=== PATIENT | female | born 1965 | race Caucasian/White ===

== ENCOUNTER 2017-10-30 17:11 | Inpatient (IN) | payer OTHER ==
[~2017-10-30] VITALS: Ht 162.6 cm; Wt 59.9 kg
[~2017-10-30 17:11] MED LIST: AMBIEN 5 MG TABL5 M1 PO; BRIO; CLONAZEPAM 0.50.5 M1 PO; CYCLOBENZAPRINE5 MG PO; FLONASE 0.05%50 MCG NASAL; GLIPIZIDE 10 MG10 MG PO; GRALISE300 MG PO; LEXAPRO 10 MG T10 M1 PO; LIDOCAINE VISC100 ML PO; PERCOCET PO; POTASSIUM20 PO; SIMVASTATIN40 MG PO; SYNTHROID75 MCG PO
[2017-10-30 17:27] VITALS: BP 130/76
[2017-10-30 17:33] LABS: URINE BILIRUBIN NEGATIVE (Negative); URINE BLOOD NEGATIVE (Negative); URINE CLARITY CLEAR; URINE COLOR YELLOW; URINE GLUCOSE-RANDOM NEGATIVE (Negative); URINE KETONES TRACE (Negative); URINE LEUKOCYTES-REFLEX TRACE (Negative); URINE NITRITE-REFLEX NEGATIVE (Negative); URINE PROTEIN NEGATIVE (Negative)
[2017-10-30 17:41] LABS: HYALINE CASTS 0-3 Few /LPF (None Seen); SQUAMOUS 0-3 Few /LPF (0-3)
[2017-10-30 17:42] LABS: CRYSTALS None Seen /LPF (None Seen); MUCUS None Seen strn/LPF (None Seen); URINE WBC-REFLEX 0-5 Rare /HPF (0-5)
[2017-10-30 17:43] LABS: BACTERIA-REFLEX 1-9 Few /HPF (None Seen); URINE RBC 0-2 Rare /HPF (0-2)
[2017-10-30] MEDS ORDERED: ZOVIRAX400 MG PO (17:43)
[2017-10-30] MEDS ORDERED: VENTOLIN HFA 1818 GM INH (17:43)
[2017-10-30] MEDS ORDERED: ATENOLOL 50MG T50 M1 PO (17:44)
[2017-10-30] MEDS ORDERED: BREO ELLIPTA 21 EACH INH (17:44)
[2017-10-30] MEDS ORDERED: CELEBREX 200 M200 M1 PO (17:44)
[2017-10-30 17:45] LABS: HEMATOCRIT 32.5 % (37.0-47.0); HEMOGLOBIN 10.7 gm/dL (12.0-15.0); MCH 29.7 pg (26.0-34.0); MPV 8.6 fl. (7.2-11.1); NUCLEATED RBCS 0 /100WBC; PLATELET COUNT* 125 thou/uL (150-400); RBC 3.61 mil/uL (4.20-5.00); RDW-CV 15.1 % (10.5-14.5); WBC 9.7 thou/uL (4.0-11.0)
[2017-10-30] MEDS ORDERED: PERIDEX15 ML MUCOUS MEM (17:45)
[2017-10-30] MEDS ORDERED: VOLTAREN GEL 1100 G2 TOP (17:47)
[2017-10-30] MEDS ORDERED: B-12 DOTS500 MCG PO (17:47)
[2017-10-30] MEDS ORDERED: LOMOTIL TABLET1 EACH PO (17:47)
[2017-10-30] MEDS ORDERED: AROMASIN25 MG PO (17:48)
[2017-10-30] MEDS ORDERED: AFINITOR10 MG PO (17:48)
[2017-10-30] MEDS ORDERED: MAGOX 400400 MG PO (17:49)
[2017-10-30] MEDS ORDERED: IPRATROPIU0.2 MG/1 M INH (17:49)
[2017-10-30] MEDS ORDERED: ZOFRAN8 MG PO (17:50)
[2017-10-30] MEDS ORDERED: PYRIDOXINE HCL100 MG PO (17:51)
[2017-10-30] MEDS ORDERED: PRAVACHOL40 MG PO (17:51)
[2017-10-30 17:52] LABS: INR 1.2; PROTIME 11.8 Seconds (9.20-11.50)
[2017-10-30 17:54] LABS: ANION GAP 8 mmol/L (7-16); BUN 22 mg/dL (7-18); CALCIUM 8.4 mg/dL (8.5-10.1); CHLORIDE 108 mmol/L (98-107); CO2 25 mmol/L (21-32); CREATININE 0.9 mg/dL (0.6-1.3); GLUCOSE 87 mg/dL (70-99); POTASSIUM 4.3 mmol/L (3.5-5.1); SODIUM 141 mmol/L (136-145)
[2017-10-30 18:09] LABS: ALBUMIN 2.3 g/dL (3.4-5.0); ALKALINE PHOSPHATASE 356 U/L (46-116); LIPASE 269 U/L (73-393); NT-PRO BRAIN NAT PEPTIDE 329 pg/mL (<300); SGOT 221 U/L (15-37); SGPT 103 U/L (30-65); TOTAL BILIRUBIN 0.9 mg/dL (<0.1-1.0); TOTAL PROTEIN 6.1 g/dL (6.4-8.2); TROPONIN-I LEVEL <0.06 ng/mL (<0.06)
[2017-10-30 18:16] LABS: ABSOLUTE EOSINOPHILS 0.1 thou/uL (0.0-0.7); ABSOLUTE LYMPHOCYTES 2.4 thou/uL (0.8-5.3); ABSOLUTE MONOCYTES 1.3 thou/uL (0.0-1.2); ABSOLUTE NEUTROPHILS 5.9 thou/uL (1.6-8.1)
[2017-10-30 18:17] LABS: PLATELET ESTIMATE DECREASED
[2017-10-30 20:40] VITALS: BP 118/65
[2017-10-30 20:50] VITALS: BP 116/64
--- NOTE | 2017-10-30 20:50 | NUR ---
ADMITTED TO FLOOR PER CART ACCOMPANIED BY ER STAFF AND WITH BELONGINGS. AMBULATES WITH STEADY GAIT FROM CART TO BED. AOX4, PLEASANT, DENIES NEEDS AT PRESENT. HISTORY OBTAINED AND ASSESSMENT PERFORMED, SEE ADMIT NOTES. R LIMB ALERT, LYMPHEDEMA PRESENT. DOUBLE MASTECTOMY WITH LEFT BREAST RECONSTRUCTION. TELE ON SR RAT 92. LCHEST PAC IVF PLACED ON PUMP FOR INFUSION. DENIES PAIN AT PRESENT. SCDS ON. WAITING ON MEDS TO BE ENTERED BY PHARMACY. TOLERATED REGULAR DIET WITHOUT N/V. CALL LITE IN EASY REACH, IN RECLINGER AT BEDSIDE. WILL CONTINUE TO MONITOR.
[2017-10-31 02:51] VITALS: BP 135/65
[2017-10-31 07:30] VITALS: BP 127/66
--- NOTE | 2017-10-31 07:36 | NUR ---
NEW ADMIT OVERNIGHT. PT STATES SHE HASNT SLEPT VERY WELL. CO CONSTIPATION, UP TO BR WITH SBA AND ABLE TO HAVE SMALL BM BUT NOTHING SIGNIFICANT. COLACE GIVEN. MESSAGE SENT TO THIS MORNING FOR ADDITIONAL MEDS. R LIMB ALERT. [facility] IVF INFUSING PER PUMP,ABX GIVEN ORDERED. LABS DRAWN THIS MORNING. AT BEDSIDE OVERNIGHT.TELE SR, TACHY WITH ACTIVITY. TEMP MAX 98.9 OVERNIGHT. ABLE TO USE CALL LITE AND MAKE NEEDS KNOWN.
--- NOTE | 2017-10-31 10:37 | EKG ---
[place] [address] ELECTROCARDIOGRAM REPORT Name: MEREDITH HAMILTON Fortunato Room: [address] IN [facility]#: [id number] Admission: 10/30/17 Attend Phys: Rachael Garcia MD Discharge: Date of : 61 Report #: [id number] THIS REPORT FOR: //name// [facility] ED Test Date: 2017-10-30 Test Time: 17:38:25 Pat Name: MEREDITH HAMILTON Department: Room: Gender: Honing Machine Operator Production: Corie PARRA : 1965 Requested By: Ezekiel Lambert Order Number: [id number] MD: Marko Valdovinos Measurements Intervals Chandler Rate: 87 P: 44 ID: [id number] QRS: 10 QRSD: 85 T: 40 QT: 352 QTc: 424 Interpretive Statements Sinus rhythm Abnormal R-wave progression, early transition No previous ECG available for comparison Electronically Signed On 10-31-2017 10:37:14 CDT by Marko Valdovinos [email or web address] <ELECTRONICALLY SIGNED> By: Marko Valdovinos MD, [facility] 10/31/17 1037 1738 173 Marko Valdovinos MD, [facility] /EPI
[2017-10-31 11:34] VITALS: BP 114/60
--- NOTE | 2017-10-31 14:24 | NUR ---
SW met with pt dtr as pt was gone from the room for a CT scan. Pt lives at home with family; Slot Tag Inserter discussed with SW that pt was in need of resources for family counseling; SW to meet with pt to provide options. SW to continue to follow to assist with safe dc planning.
[2017-10-31 16:11] VITALS: BP 121/65
[2017-10-31 16:44] LABS: HEMATOCRIT 29.6 % (37.0-47.0); HEMOGLOBIN 9.7 gm/dL (12.0-15.0); MCH 30.1 pg (26.0-34.0); MCHC 32.9 g/dL (28.0-37.0); MCV 91.4 fL (80.0-100.0); MPV 9.4 fl. (7.2-11.1); NUCLEATED RBCS 0 /100WBC; PLATELET COUNT* 110 thou/uL (150-400); RBC 3.24 mil/uL (4.20-5.00); RDW-CV 15.6 % (10.5-14.5)
[2017-10-31 16:53] LABS: CALCIUM 8.2 mg/dL (8.5-10.1); CREATININE 0.9 mg/dL (0.6-1.3); POTASSIUM 4.3 mmol/L (3.5-5.1); TOTAL BILIRUBIN 0.8 mg/dL (<0.1-1.0)
[2017-10-31 17:34] LABS: ABSOLUTE EOSINOPHILS 0.1 thou/uL (0.0-0.7); ABSOLUTE LYMPHOCYTES 1.4 thou/uL (0.8-5.3); ABSOLUTE MONOCYTES 0.6 thou/uL (0.0-1.2); ABSOLUTE NEUTROPHILS 5.9 thou/uL (1.6-8.1); PLATELET ESTIMATE ADEQUATE
--- NOTE | 2017-10-31 17:43 | NUR ---
PT SENT FOR ABD US, CT SINUSES, AND MRI BRAIN TODAY. FAMILY PRESENT AT PT'S BESIDE THIS AFTERNOON. L CHEST PORT IN PLACE WITH NO COMPLICATIONS. PT BEING SEEN BY SURGERY TODAY. TOLERATING REGULAR DIET WELL.
[2017-10-31 20:30] VITALS: BP 145/72
[2017-11-01 04:34] VITALS: BP 130/78
--- NOTE | 2017-11-01 06:14 | NUR ---
PT RECEIVED SUPPOSITORY AT HS AND HAD LARGE BM SHE STATES. RECEIVING SLEEP MED AT HS AND SLEPT WELL OVERNIGHT. TELE SR. UP AD NIRMAL IN ROOM, USING BR TO VOID WITHOUT DIFFICULTY. L PAC IVF INFUSING PER PUMP, ABX GIVEN ORDERED. NPO SINCE MIDNIGHT FOR PIPPIDA SCAN TODAY. ABLE TO USE CALL LITE AND MAKE NEEDS KNOWN.
[2017-11-01 06:59] LABS: ABSOLUTE EOSINOPHILS 0.2 thou/uL (0.0-0.7); ABSOLUTE LYMPHOCYTES 1.1 thou/uL (0.8-5.3); ABSOLUTE MONOCYTES 0.8 thou/uL (0.0-1.2); ABSOLUTE NEUTROPHILS 4.8 thou/uL (1.6-8.1); BASOPHILS 0.6 %; EOSINOPHILS 2.4 %; HEMATOCRIT 27.6 % (37.0-47.0); HEMOGLOBIN 9.2 gm/dL (12.0-15.0); LYMPHOCYTES 15.5 %; MCHC 33.3 g/dL (28.0-37.0); MCV 90.3 fL (80.0-100.0); MONOCYTES 11.6 %; MPV 9.2 fl. (7.2-11.1); NUCLEATED RBCS 0 /100WBC; PLATELET COUNT* 99 thou/uL (150-400); POLYS 69.9 %; RBC 3.05 mil/uL (4.20-5.00); WBC 6.9 thou/uL (4.0-11.0)
[2017-11-01 07:33] LABS: ALBUMIN 1.7 g/dL (3.4-5.0); CREATININE 0.7 mg/dL (0.6-1.3); POTASSIUM 4.7 mmol/L (3.5-5.1); TOTAL BILIRUBIN 0.7 mg/dL (<0.1-1.0); TOTAL PROTEIN 5.2 g/dL (6.4-8.2)
[2017-11-01 07:40] VITALS: BP 144/77
[2017-11-01 08:00] LABS: CALCIUM 7.6 mg/dL (8.5-10.1)
--- NOTE | 2017-11-01 09:56 | NUR ---
SW met with pt and pt in room to provide mental health/family counseling resources/referrals. Pt plans to call to see if one of the options would work well for her and her family. No other needs expressed at this time.
--- NOTE | 2017-11-01 11:55 | CON ---
[address] [address] CONSULTATION Name: MEREDITH HAMILTON Room: [address] IN ..#: [id number] Admission: 10/30/17 Attend Phys: Rachael Garcia MD Discharge: Date of : 61 Report #: [id number] THIS REPORT FOR: //name// CC: Rachael Jimenez DATE OF SERVICE: 10/31/2017 ATTENDING PHYSICIAN: Dr. Hill. REASON FOR EVALUATION: Febrile illness of uncertain etiology. The patient with metastatic breast cancer. She is on chemotherapy, although is not neutropenic. HISTORY OF PRESENT ILLNESS: Chart reviewed, the patient examined. This is a 52-year-old with stage 4 adenocarcinoma of the breast, has hepatic metastases, is on Afinitor at home who over the course of the last 2 weeks has had intermittent fevers, which have been high grade reported as 102.5. Does admit to some sinus drainage including a bloody discharge. She notes she did have nasal surgery back in latter part of 2017, I believe. She denies significant amount of pulmonary-related complaints, she does not have them. She does complain of abdominal pain, but that is new since admission, which she attributes to constipation, which is unusual for her. She is lucid. On initial evaluation, urinalysis was generally unremarkable, lactic acid 1.7. Chest x-ray was unremarkable. CT of the head, visualized portions of the paranasal sinuses and mastoid cells are clear. Blood cultures are sterile thus far. She was empirically started on cefepime. ALLERGIES: SULFA. CURRENT MEDICATIONS: Include exemestane, everolimus, cyanocobalamin, celecoxib, atenolol, citalopram, levothyroxine, cefepime, p.r.n. analgesics and antiemetics. PAST MEDICAL HISTORY: As noted above, history of hypertension, has diabetes mellitus, chronic right upper extremity lymphedema. SOCIAL HISTORY: Nonsmoker, no ethanol. FAMILY HISTORY: Noncontributory. REVIEW OF SYSTEMS: As above. PHYSICAL EXAMINATION: GENERAL: She appears chronically ill, undernourished. She is alert, cooperative, lucid, mild [place] [address] CONSULTATION Name: MEREDITH HAMILTON Room: [address]#: [id number] Admission: 10/30/17 Attend Phys: Rachael Garcia MD Discharge: Date of : 61 Report #: [id number] VITAL SIGNS: Temperature 98.7, pulse 106, respirations 18, blood pressure 127/66. SKIN: Warm, dry. I do not appreciate any rashes. HEENT: Otherwise, unremarkable. NECK: Supple. LUNGS: Generally clear. HEART: Regular. I do not appreciate any murmur. ABDOMEN: Soft, mildly distended. There are no peritoneal signs. GENITOURINARY: Deferred. RECTAL: Deferred. LABORATORY DATA: As described above. Urinalysis, 0-5 white cells. Lactic acid 1.7. Chest x-ray, no acute process. Electrolytes: Sodium 141, potassium 4.3, chloride 108, bicarbonate is 25, anion gap of 8, BUN and creatinine 22 and 0.9, AST of 221, ALT of 103, lipase 269. CBC: White count 9.7, H and H 10.7 and 32.5, platelets of 125. There is borderline monocytosis of 1300. ASSESSMENT: Febrile illness of uncertain etiology. At this point, she is afebrile. We will continue empiric therapy. I am sure she has degree of immunosuppression. I did note the hepatic transaminases were elevated, and the AST was high relative to the ALT. Ultrasound noted that she does have hepatic metastases, exclude occult process. I am going to check CT of the sinuses as well, though the initial CT of the head was otherwise unremarkable. We will see how she does clinically over the course of next 24-48 hours. <ELECTRONICALLY SIGNED> By: Pepe Frost MD 11/01/17 1155 1100 [id number] Frost MD /nt
[2017-11-01 16:09] VITALS: BP 131/75
--- NOTE | 2017-11-01 17:39 | NUR ---
PATIENT IS ALERT AND ORIENTED TODAY. WAS SOME WHAT AGITATED THIS MORNING DUE TO BEING NPO BEFORE PIPIDA SCAN. AFTERWARDS PATIENT ATE AND FELT MUCH BETTER. TOLERATED FOOD WELL. PORT IS WORKING WELL WITH FLUIDS RUNNING. UP AD NIRMAL IN ROOM. CALL LIGHT IS IN REACH, WILL CONTINUE TO MONITOR.
[2017-11-01 23:55] VITALS: BP 114/68
--- NOTE | 2017-11-02 06:33 | NUR ---
PATIENT SLEPT MOST OF THE NIGHT. IV FLUIDS CONTINUE TO INFUSE ORDERED. PATIENT HAD NO COMPLAINTS OF PAIN. PATIENT HAS REMAINED AFEBRILE THIS SHIFT. WILL CONTINUE TO MONITOR.
[2017-11-02 10:00] VITALS: BP 136/75
[2017-11-02 14:56] VITALS: BP 136/75
--- NOTE | 2017-11-02 15:01 | CON ---
[address] [address] CONSULTATION Name: ALEXANDERLGMEREDITH OILVEROS Room: [address] IN .#: [id number] Admission: 10/30/17 Attend Phys: Rachael Garcia MD Discharge: Date of : 61 Report #: [id number] THIS REPORT FOR: //name// CC: Rachael Jimenez DATE OF SERVICE: 10/31/2017 REASON FOR CONSULTATION: Metastatic breast cancer and fever. REQUESTING PHYSICIAN: Dr. Garcia. HISTORY OF PRESENT ILLNESS: The patient is a pleasant 52-year-old woman with stage 4 breast cancer who is currently receiving Afinitor and exemestane. She has been on current regimen since 07/2017. She has been having intermittent fevers up to 102 and intermittent confusion. She had a CT scan of head done, which did not show any BAG LOADER metastatic disease. The patient has been seen in the Emergency Room several times. She is admitted to the hospital now with the same reasons, which she does encounter from confusion. Oncology consult is requested. She is feeling somewhat better. She has complaints of abdominal "bloating" and discomfort. She does not have nausea or vomiting. She does not have headaches. She has complaints of cough. She does not have hemoptysis. PAST MEDICAL HISTORY: Significant for stage 4 breast cancer to the bone and liver. She has a history of hypothyroidism, depression, chronic sinusitis, recurrent upper respiratory infections and peripheral neuropathy. SOCIAL HISTORY: She does not smoke or drink currently and has very supportive family. FAMILY HISTORY: Noncontributory. REVIEW OF SYSTEMS: See above. PHYSICAL EXAMINATION: GENERAL: Reveals chronically ill-appearing woman, somewhat lethargic, but arousable. VITAL SIGNS: Blood pressure 121/65, heart rate is 94, temperature 98.3 and respirations 20. HEENT: Does not reveal thrush. NECK: Supple. HEART: Normal S1 and S2. LUNGS: Clear. ABDOMEN: Soft. Abdomen is distended, somewhat tender right upper quadrant, but no guard[place] [address] CONSULTATION Name: MEREDITH HAMILTON Room: [address] IN [facility]#: [id number] Admission: 10/30/17 Attend Phys: Rachael Garcia MD Discharge: Date of : 61 Report #: [id number] MENTAL STATUS: Lethargic, but arousable and answers questions appropriately. LABORATORY DATA: White count 8.0, hemoglobin 9.7, and platelet count 110. Sodium 141 and potassium 4.3. AST 221, ALT 103 and alkaline phosphatase 350. UA: Trace leukocyte esterase. CT of the head visualized ____. CT of the sinuses shows sphenoid and frontal sinus mucosal thickening. Abdominal ultrasound shows diffuse gallbladder wall thickening. There is no edema. Positive sonographic Davis sign. Indeterminant isoechoic nodules ____ left lobe of the liver. ASSESSMENT AND PLAN: 1. Fever of unclear etiology. Agree with surgical intervention with possible cholecystectomy. Agree with case. 2. Confusion. I plan to order brain MRI. 3. Metastatic breast cancer. Continue exemestane. Hold everolimus for several days until etiology of fever is clear. Thank you very much for allowing me to participate in the care of this patient. <ELECTRONICALLY SIGNED> By: Aurelio Byers MD 11/02/17 1501 [id number] [id number] Byers MD /nt
[2017-11-02 15:33] VITALS: BP 144/78
[2017-11-02] MEDS ORDERED: CEFDINIR300 MG PO (16:35)
[2017-11-02 16:37] VITALS: BP 136/75
[2017-11-02 17:01] VITALS: BP 136/75
--- NOTE | 2017-11-02 17:13 | NUR ---
PATIENT IS ALERT AND ORIENTED VERY PLEASANT. UP AD NIRMAL IN ROOM, VITAL SIGNS STABLE ON ROOM AIR. NO COMPLAINTS OF ANY KIND TODAY. PATIENT IS BEING DISCHARGED TODAY TO HOME. DISCHARGE INSTRUCTIONS AND PRESCRIPTIONS GIVEN TO CONCEPCIÓN. QUESTIONS ANSWERED FOR PATIENT AND . PORT DEACCESSED PER PROTOCOL. LEFT VIA WHEEL CHAIR TO HOME WITH BELONGINGS, LEFT WITH .
[2017-11-02 17:15] VITALS: BP 136/75
[2017-11-02 21:13] LABS: ADENOVIRUS Negative (Negative); INFLUENZA A Negative (Negative); INFLUENZA B Negative (Negative); METAPNEUMOVIRUS Negative (Negative); PARAINFLUENZA 1 Negative (Negative); PARAINFLUENZA 2 Negative (Negative); PARAINFLUENZA 3 Negative (Negative); RHINOVIRUS Negative (Negative); RSV A Negative (Negative); RSV B Negative (Negative)
== END 2017-11-02 17:16 | disposition home or self-care (01) | DRG 444 ==
LOC: M.ERS 17:11 → M.TBA-ER 18:21 → M.3W 18:21
PROVIDERS: Family Medicine; Internal Medicine; Surgery; ADMIT Internal Medicine
DX: K81.0 Acute cholecystitis (principal); E43 Unspecified severe protein-calorie malnutrition; R65.10 Systemic inflammatory response syndrome (SIRS) of non-infectious origin without acute organ dysfunction; I10 Essential (primary) hypertension; E03.9 Hypothyroidism, unspecified; F32.9 Major depressive disorder, single episode, unspecified; K81.1 Chronic cholecystitis; E11.42 Type 2 diabetes mellitus with diabetic polyneuropathy; J45.909 Unspecified asthma, uncomplicated; Z88.8 Allergy status to other drugs, medicaments and biological substances; Z85.3 Personal history of malignant neoplasm of breast; Z90.13 Acquired absence of bilateral breasts and nipples; Z88.2 Allergy status to sulfonamides; Z79.899 Other long term (current) drug therapy; Z68.22 Body mass index [BMI] 22.0-22.9, adult

== ENCOUNTER 2018-07-19 17:29 | Inpatient (IN) | payer OTHER ==
[~2018-07-19] VITALS: Ht 170.2 cm; Wt 60.0 kg
--- NOTE | ~2018-07-19 | CON ---
[address] [address] CONSULTATION Name: MEREDITH HAMILTON Room: [address] IN .R.#: [id number] Admission: 07/19/18 Attend Phys: Deann Ramos Discharge: 07/21/18 Date of : 61 Report #: [id number] THIS REPORT FOR: //name// CC: Lizzy Sullivan DICTATED BY: Jonna Romano [facility] DATE OF SERVICE: 07/20/2018 PRIMARY CARE PHYSICIAN: Lizzy Green NP in [facility]. Please note at the time of this dictation, the patient was seen and physically examined by myself. REASON FOR CONSULTATION: Abdominal pain. No bowel movement for greater than 10 days. HISTORY OF PRESENT ILLNESS: This is a 53-year-old female who is unable to give a history. However, her is at her bedside and able to facilitate this. The patient has a longstanding history of metastatic breast cancer initially diagnosed in 2013 with a reoccurrence in 16 and she has been on chemo since. Her chemo was stopped 2 weeks ago due to low platelets. Prior to that, her states that her bowels have been working fairly well; however, over the last month or two, she has not been having regular bowel movements and it has been 10 days since her last bowel movement at this time. He has also noted that over the course of the past week to 10 days, her mental status has deteriorated and that she acts more confused and does not talk appropriately. They did try a little bit of some stool softeners, saw the PCP and was given a prescription for some medicine to help with her bowels, but he does not recall what that was. He states it just gradually progressively has gotten worse, which prompted him to bring her in. He did mention that a year ago, they were told that she had a spot on her liver but that was gone. Unclear, if she has mets to her liver. He states that they did see a spot on her kidney and possibly in her bone on recent testing. He states to his knowledge, she has never had an EGD or colonoscopy at this time. ALLERGIES: SULFA and BENADRYL. MEDICATIONS: From home Aldactone, Neurontin and Zovirax. PAST MEDICAL HISTORY: Significant for: Breast cancer in 2003 with mets noted in 2015 and undergoing chemo, which was stopped 2 weeks ago; hypertension; diabetes and she has got some left arm lymphadenopathy noted. PAST SURGICAL HISTORY: Double mastectomy [place] [address] CONSULTATION Name: MEREDITH HAMILTON Room: [address] IN [facility]#: [id number] Admission: 07/19/18 Attend Phys: Deann Ramos Discharge: 07/21/18 Date of : 61 Report #: [id number] surgery. FAMILY HISTORY: Noncontributory. SOCIAL HISTORY: Denies any alcohol, tobacco or illegal drug use. REVIEW OF SYSTEMS: Twelve-point review of systems is essentially negative except what is mentioned in the HPI. PHYSICAL EXAMINATION: VITAL SIGNS: Temperature 36.4, pulse 99, respirations 18 and blood pressure 150/54. LABORATORY DATA: Hemoglobin is 9.1, white count is 22.6 and platelets is 47. PT is 14.2 and INR is 1.4. Sodium 128, potassium 5.4 and she has got a GFR of 21. Total bilirubin is 2.5, alkaline phosphatase is 536, ALT is 68 and AST is 291. RADIOLOGICAL DATA: CT of the abdomen and pelvis showed moderate gaseous distention in the ascending and transverse with stool noted in the cecum and ascending with nodular appearance depicting cirrhosis of the liver, moderate abdominal and pelvic ascites noted and with diffuse fat stranding and mesenteric stranding noted. IMPRESSION: 1. Abdominal pain, likely colonic ileus. 2. Elevated liver function tests. 3. Altered mental status, likely hepatic encephalopathy. 4. Thrombocytopenia. 5. Leukocytosis. 6. Hyponatremia/hyperkalemia. 7. Constipation greater than 10 days. 8. Metastatic breast cancer. 9. Chronic kidney disease. PLAN: 1. Labs, ammonia, GGTP, acute hepatitis panel and AFP. 2. Dulcolax suppository 20 mg now, see if we can get any bowel stimulation going. 3. Depending on above results, may need to consider lactulose enemas or decompression of her colon. 4. We will get an abdominal x-ray to evaluate or gaseous distention further. 5. Abdominal ultrasound to look more closely at her liver and ducts due to her elevated LFTs. 6. May need to consider a diagnostic paracentesis as well as therapeutic. If unable to determine why she has leukocytosis once her platelets are therapeutic and her rest of her electrolytes correct themselves. [address] [address] CONSULTATION Name: MEREDITH HAMILTON [facility] [place]#: [id number] Admission: 07/19/18 Attend Phys: Deann Ramos Discharge: 07/21/18 Date of : 61 Report #: [id number] 7. Further recommendations to be made once Dr. Jerry sees the patient later today. Thank you for allowing us to participate in this patient's care. Please do not hesitate to call with any questions in regard to this consult. Please also note that greater than 30 minutes was spent with the patient in 101 contact. ADDENDUM This is a 53-year-old female with history of metastatic breast CA, who presented to the hospital with weakness and constipation for past 10 days. Since hospitalization, the patient found to have a poor mentation and ammonia level in the range of 120s. She also has evidence of cirrhosis of liver, which appears to be decompensated. She has ascites, coagulopathy and encephalopathy. Since the patient was seen on the floor a couple hours ago, her clinical course has changed. She is currently confused and combative in the ICU. She has multiorgan failure as she has renal failure with creatinine in the range of 2.5. She also has elevated lactate level of 16. She does not have fever but has leukocytosis in the range of mid 20,000s. The patient is also hypotensive. The patient with multiorgan failure and newly diagnosed cirrhosis, who appears confused with change of mentation. Her prognosis is poor. I would recommend to intubate the patient to protect her airway as she appeared to have a recent mental status changes and thrashing. She also had metabolic acidosis, which needs to be corrected. We will recommend lactulose 30 mL either rectally or per NG tube q. 4 hours. We will also consider a diagnostic tap to see the cause of her ascites and also to rule out spontaneous bacterial peritonitis. We will monitor the patient closely and make further recommendation based on her progression. Note that her prognosis is poor. By: [id number] Jerry MD /nt
[~2018-07-19 17:29] MED LIST changes: +AFINITOR10 MG PO; +AROMASIN25 MG PO; +ATENOLOL 50MG T50 M1 PO; +B-12 DOTS500 MCG PO; +BREO ELLIPTA 21 EACH INH; +CEFDINIR300 MG PO; +CELEBREX 200 M200 M1 PO; +IPRATROPIU0.2 MG/1 M INH; +LOMOTIL TABLET1 EACH PO; +MAGOX 400400 MG PO; +PERIDEX15 ML MUCOUS MEM; +PRAVACHOL40 MG PO; +PYRIDOXINE HCL100 MG PO; +VENTOLIN HFA 1818 GM INH; +VOLTAREN GEL 1100 G2 TOP; +ZOFRAN8 MG PO; +ZOVIRAX400 MG PO
[2018-07-19 17:42] VITALS: BP 95/73
[2018-07-19 18:26] LABS: HEMATOCRIT 28.3 % (37.0-47.0); HEMOGLOBIN 9.1 gm/dL (12.0-15.0); MCH 31.1 pg (26.0-34.0); MCHC 32.3 g/dL (28.0-37.0); MCV 96.3 fL (80.0-100.0); MPV 8.6 fl. (7.2-11.1); NUCLEATED RBCS 5 /100WBC; RBC 2.94 mil/uL (4.20-5.00); RDW-CV 20.2 % (10.5-14.5); WBC 22.6 thou/uL (4.0-11.0)
[2018-07-19 18:30] LABS: PLATELET COUNT* 47 thou/uL (150-400)
[2018-07-19 18:43] LABS: ALBUMIN 2.1 g/dL (3.4-5.0); ALKALINE PHOSPHATASE 536 U/L (46-116); ANION GAP 17 mmol/L (7-16); BUN 39 mg/dL (7-18); CALCIUM 9.4 mg/dL (8.5-10.1); CHLORIDE 94 mmol/L (98-107); CO2 17 mmol/L (21-32); CREATININE 2.4 mg/dL (0.6-1.3); GLUCOSE 69 mg/dL (70-99); LIPASE 223 U/L (73-393); POTASSIUM 5.4 mmol/L (3.5-5.1); SGOT 299 U/L (15-37); SGPT 68 U/L (30-65); SODIUM 128 mmol/L (136-145); TOTAL BILIRUBIN 2.5 mg/dL (<0.1-1.0); TOTAL PROTEIN 6.2 g/dL (6.4-8.2); TROPONIN-I LEVEL <0.06 ng/mL (<0.06)
[2018-07-19] MEDS ORDERED: ACYCLOVIR 400400 MG PO (18:46)
[2018-07-19] MEDS ORDERED: NEURONTIN 300300 M1 PO (18:46)
[2018-07-19] MEDS ORDERED: ALDACTONE50 MG PO (18:47)
[2018-07-19 19:09] LABS: ABSOLUTE LYMPHOCYTES 6.6 thou/uL (0.8-5.3); ABSOLUTE MONOCYTES 0.9 thou/uL (0.0-1.2); ABSOLUTE NEUTROPHILS 15.1 thou/uL (1.6-8.1); ATYPICAL LYMPHS 16 %; METAMYELOCYTES 6 %; MYELOCYTES 2 %; PLATELET ESTIMATE DECREASED
[2018-07-19 19:10] LABS: ANISOCYTOSIS 1+; POLYCHROMASIA 1+; TOXIC GRANULATION 1+
[2018-07-19 19:42] LABS: APTT 27.3 Seconds (25.0-31.3); INR 1.4; PROTIME 14.2 Seconds (9.20-11.50)
[2018-07-19 20:00] VITALS: BP 100/60
[2018-07-19 21:37] VITALS: BP 110/56
[2018-07-19 21:45] VITALS: BP 100/60
[2018-07-19 22:59] LABS: URINE BLOOD TRACE (Negative); URINE CLARITY CLEAR; URINE COLOR YELLOW; URINE GLUCOSE-RANDOM NEGATIVE (Negative); URINE KETONES TRACE (Negative); URINE LEUKOCYTES-REFLEX NEGATIVE (Negative); URINE NITRITE-REFLEX NEGATIVE (Negative); URINE PROTEIN TRACE (Negative); URINE SPECIFIC GRAVITY >= 1.030 (1.005-1.030); URINE UROBILINOGEN 0.2 E.U./dl (0.2-1.0)
[2018-07-19 23:03] LABS: ICTOTEST (BILI CONFIRMATORY) Negative (Negative); URINE BILIRUBIN 1+ (Negative)
[2018-07-20] VITALS (28 sets, daily range): BP systolic 66–150; BP diastolic 21–66
--- NOTE | 2018-07-20 02:57 | NUR ---
PT ARRIVED AT 201 2150 VIA CART FROM ER. PT ALERT ORIENTED. FALL RISK. UP TO BR WITH ASSIST OF ONE. TELEMETRY SHOWS SR. NS STARTED AT 100MLS/HR. KAYEXALATE GIVEN FOR K+ 5.4. AT BS.
--- NOTE | 2018-07-20 04:39 | NUR ---
PT RATES PAIN 3/10. STATED SHE WAS OKAY WITHOUT FURTHER PAIN MEDICATION.
--- NOTE | 2018-07-20 07:45 | NUR ---
RECEIVED REPORT FROM SHAYE AND ASSUMED CARE OF PT @ 1012.PT IS ALERT TO NAME BUT IS VERY SLEEPY AND DISORIENTED.VSS,TRACING SR ON THE MONITOR.LEFT SUBCLAVIAN PORT A CATH PATENT WITH FLUIDS INFUSING PER ORDERS.PT HAS NOT HAD BM FOR TEN DAYS-SUPPOSITORY GIVEN PER ORDERS.PT IS NPO STATUS.PT C/O GENERALIZED PAIN-MEDICATIONS GIVEN.PT IS UNABLE TO FOLLOW DIRECTIONS AND IS THRASHING IN BED. PT LEFT RESTING IN BED WITH CALL LIGHT AND FALL PRECAUTIONS IN PLACE.FAMILY AT BEDSIDE. WILL CONTINUE TO MONITOR. PT NOON BLOOD PRESSURE WAS 80S/60S.DOCTOR NOTIFIED WITH NEW ORDERS RECEIVED.PT TO TRANSFER TO ICU.REPORT CALLED AND GIVEN TO EFRAIN.ALL PERSONAL BELONGINGS BACKED AND TAKEN WITH PT.FAMILY AT BEDSIDE.
--- NOTE | 2018-07-20 13:40 | NUR ---
Pt transferred to the ICU prior to CM being able to assess
[2018-07-20 14:35] LABS: HEMOGLOBIN 8.3 gm/dL (12.0-15.0)
[2018-07-20 14:37] LABS: HEMATOCRIT 28.9 % (37.0-47.0); MCHC 28.6 g/dL (28.0-37.0); MPV 10.5 fl. (7.2-11.1); RBC 2.67 mil/uL (4.20-5.00); RDW-CV 22.2 % (10.5-14.5)
[2018-07-20 14:52] LABS: PCO2 VENOUS 23.4 mmHg (41.0-51.0); PO2 VENOUS 78.2 mmHg (35.0-45.0)
[2018-07-20 14:52] LABS: PROTIME 24.5 Seconds (9.20-11.50)
[2018-07-20 14:57] LABS: MCV 108.2 fL (80.0-100.0)
[2018-07-20 15:01] LABS: INR 2.4
[2018-07-20 15:09] LABS: ALBUMIN 1.7 g/dL (3.4-5.0); CALCIUM 8.4 mg/dL (8.5-10.1); CREATININE 3.1 mg/dL (0.6-1.3); MAGNESIUM 3.2 mg/dL (1.8-2.4); TOTAL BILIRUBIN 2.7 mg/dL (<0.1-1.0); TOTAL PROTEIN 5.5 g/dL (6.4-8.2)
[2018-07-20 15:10] LABS: WBC 43.6 thou/uL (4.0-11.0)
[2018-07-20 15:12] LABS: POTASSIUM 6.9 mmol/L (3.5-5.1)
[2018-07-20 17:39] LABS: BE -26.4 mmol/L (-2 to +3); PCO2 VENOUS 25.3 mmHg (41.0-51.0); PO2 VENOUS 143.8 mmHg (35.0-45.0)
[2018-07-20 18:26] LABS: CREATININE 3.1 mg/dL (0.6-1.3)
[2018-07-20 18:29] LABS: POTASSIUM 6.9 mmol/L (3.5-5.1)
--- NOTE | 2018-07-20 18:53 | NUR ---
RECIEVED REPORT FROM ANA LUIS. ASSESSMENT CHARTED. AFEBRILE. PT NOT ALERT OR AWARE WHEN TRANSFERRED DOWN AROUND 1330. COULD NOT GET ACCURATE BP OR VITALS DUE TO PT THRASHING AROUND IN BED AND CONFUSION. HOSPITALIST NOTIFIED OF STATUS AND ORDER FOR FENTANYL GIVEN. TALKED TO NEPHRO AND GI. INTUBATION SUGGESTED AND RELAYED MESSAGE TO HOSPITALIST. ORDER FOR INTUBATION AND PULMONARY CONSULT GIVEN. PT INTUBATED AROUND 1430. CENTRAL LINE PLACED. ATTEMPTED TO PLACE ART LINE BUT UNSUCCESSFUL. LEVO GTT. PROPOFOL. BICARD GTT INFUSING. FAMILY UPDATED ON PLAN OF CARE.
[2018-07-20 23:06] LABS: HEPATITIS B SURFACE AG Negative (Negative)
[2018-07-20 23:24] LABS: BE -28.2 mmol/L (-2 to +3); PCO2 VENOUS 19.4 mmHg (41.0-51.0); PO2 VENOUS 198.6 mmHg (35.0-45.0)
[2018-07-21] VITALS (37 sets, daily range): BP systolic 43–135; BP diastolic 12–68
--- NOTE | 2018-07-21 02:45 | NUR ---
Pt showing signs of gradual and steady decline. Requiring increased dosing of Levophed gtt to maintain BP. VBG results worsening from previous draw, and potassium up from 6.9 to 7.3. Pt's , dtr, and sister in ICU waiting area. Spoke with dtr and , updated on pt's condition. Inquired about clarification of code status; family states they want pt to be DNR (family's decision communicated with Dr. Garcia, order received). Will continue to monitor.
[2018-07-21 03:39] LABS: HEMATOCRIT 24.1 % (37.0-47.0); RBC 2.12 mil/uL (4.20-5.00)
[2018-07-21 03:41] LABS: BASOPHILS 1.4 %; EOSINOPHILS 2.9 %; MCH 31.5 pg (26.0-34.0); MCHC 27.7 g/dL (28.0-37.0); MONOCYTES 5.1 %; NUCLEATED RBCS 8 /100WBC; POLYS 71.6 %; RDW-CV 22.9 % (10.5-14.5)
[2018-07-21 03:44] LABS: ABSOLUTE BASOPHILS 0.4 thou/uL (0.0-0.2); ABSOLUTE EOSINOPHILS 0.7 thou/uL (0.0-0.7); ABSOLUTE LYMPHOCYTES 4.9 thou/uL (0.8-5.3); ABSOLUTE MONOCYTES 1.3 thou/uL (0.0-1.2); ABSOLUTE NEUTROPHILS 18.3 thou/uL (1.6-8.1); MCV 113.6 fL (80.0-100.0); WBC 25.6 thou/uL (4.0-11.0)
[2018-07-21 03:46] LABS: HEMOGLOBIN 6.7 gm/dL (12.0-15.0); PLATELET COUNT* 32 thou/uL (150-400)
--- NOTE | 2018-07-21 06:00 | NUR ---
Pt's Hgb 6.7. Inquired with pt's about likelihood of having blood transfusion ordered; states to proceed with transfusion if ordered. States he wants pt to continue to be treated as long as "it does not cause her pain." Pt's BP continues to decline whil on max dosing of Levophed. Orders received for Dopamine gtt. Will continue to monitor.
[2018-07-21 06:07] LABS: BE -31.1 mmol/L (-2 to +3); PCO2 VENOUS 20.5 mmHg (41.0-51.0); PO2 VENOUS 202.8 mmHg (35.0-45.0)
[2018-07-21 06:34] LABS: APTT 74.1 Seconds (25.0-31.3); FIBRINOGEN 109 mg/dL (200-340)
[2018-07-21 07:27] LABS: ALBUMIN 1.3 g/dL (3.4-5.0); ALKALINE PHOSPHATASE 881 U/L (46-116); ANION GAP 32 mmol/L (7-16); BUN 49 mg/dL (7-18); CALCIUM 7.8 mg/dL (8.5-10.1); CHLORIDE 95 mmol/L (98-107); CREATININE 3.7 mg/dL (0.6-1.3); GLUCOSE 254 mg/dL (70-99); MAGNESIUM 3.2 mg/dL (1.8-2.4); SGPT 1566 U/L (30-65); SODIUM 132 mmol/L (136-145); TOTAL BILIRUBIN 2.7 mg/dL (<0.1-1.0); TOTAL PROTEIN 4.2 g/dL (6.4-8.2)
--- NOTE | 2018-07-21 07:29 | NUR ---
PATIENT CURRENT BLOOD PRESSURE 60/14. HR 85. RESPIRATIONS 34. UNABLE TO GET ACCURATE OXYENGATION READING. DR MALCOLM IN ROOM. STATED TO KEEP AT ONLY TWO PRESSORS AND HE WILL TALK TO FAMILY AT THIS TIME.
[2018-07-21 07:41] LABS: POTASSIUM 8.3 mmol/L (3.5-5.1)
--- NOTE | 2018-07-21 07:52 | NUR ---
DR NICHOLS RETURNED CALL ABOUT LABS. ORDERS TO CALL NEPHROLOGY WITH LABS. DR VEE CALLED THROUGH ANSWERING SERFICE. AWAITING CALL BACK AT THIS TIME.
--- NOTE | 2018-07-21 08:08 | NUR ---
DR VEE HAD DISCUSSION WITH , DAUGHTER, SON, MOM, AND FATHER OF PATIENT ABOUT PATIENT PROGNOSIS. PATIENT UNDERSTANDING. CALLING IN FAMILY PRIOR TO WITHDRAWL OF CARE.
[2018-07-21 09:43] LABS: PHOSPHORUS* 15.7 mg/dL (2.5-4.9); SGOT 11501 U/L (15-37)
--- NOTE | 2018-07-21 10:18 | CON ---
[address] [address] CONSULTATION Name: ALFONSOMEREDITH Fortunato Room: [address] IN .R.#: [id number] Admission: 07/19/18 Attend Phys: Deann Ramos Discharge: Date of : 61 Report #: [id number] THIS REPORT FOR: //name// CC: Katie Sullivan DATE OF SERVICE: 07/20/2018 ATTENDING PHYSICIAN: Peg Rankin MD. PRIMARY CARE PHYSICIAN: The patient is located in ICU bed 2. INDICATION FOR CONSULTATION: Acute respiratory failure, severe metabolic acidosis, sepsis, metastatic breast CA. HISTORY OF PRESENT ILLNESS: The patient is a 53-year-old female, nonsmoker, who has been constipated for the last 10 days. She presented to the Emergency Room this morning. She has been lethargic and confused for the last 4-5 days, maybe had had a low-grade fever. She contacted her duty officer/oncologist at [facility] and told to come to the Emergency Room. She received a gram of Rocephin after cultures and a liter of normal saline, some Zofran. The patient has CT of the abdomen showing marked ascites, liver disease and cirrhosis. We did a venous blood gas. We could not get arterial access and her bicarb was 4. Her pH was 6.9 and her pO2 was in the 70s that was on 8 liters. I made the decision to have her intubated emergently after 2 amps of bicarbonate was given. It appears she is a full code blue from her family and from her previous discussions with other family. PAST MEDICAL HISTORY: She has had metastatic breast cancer. She has had bilateral mastectomies with a left breast reconstruction at some point in time. This appears to have been since [id number]. She has also had renal insufficiency and acute kidney injury and chronic renal disease. She has also had history of diabetes mellitus type 2 and right arm lymphedema. She has undergone chemotherapy and her last chemotherapy was 2 weeks ago with some experimental protocol called everolimus or Afinitor 10 mg daily and exemestane or Aromasin 25 mg daily, was also on cefdinir 300 mg b.i.d., acyclovir 400 mg b.i.d. and albuterol inhaler, clonazepam 0.5 mg. She has just received some IV bicarbonate here. FAMILY HISTORY: Noncontributory at this time and there is some cancer history. SOCIAL HISTORY: She lives with family members in [place], [place] [address] CONSULTATION Name: ALEXANDERLGMEREDITH OLIVEROS Room: [address] IN ..#: [id number] Admission: 07/19/18 Attend Phys: Deann Ramos Discharge: Date of : 61 Report #: [id number] are supportive. She is and has children. Nonsmoker, nondrinker. I believe is durable power of senior attorney. She is full code blue at this time. Computer Numerical Control Programmer oncologist at [facility]. REVIEW OF SYSTEMS: A 14-point review of systems was not able to be obtained because of her obtunded state. PHYSICAL EXAMINATION: GENERAL: Obtunded, 53-year-old female. VITAL SIGNS: Blood pressure was barely palpable at 80/50, heart rate is 100-110, respirations were 20-24, somewhat labored and shallow. She has a Port-A-Cath in the left chest wall with IV fluids going at that time. Her respirations were 20-24 and temperature was 36.4 degrees. She is 5 feet 6 inches tall and weight is 60 kilograms or 132 pounds, BMI is 21. HEENT: Pupils are midpoint, sluggishly reactive. Mucous membranes appear dry. She is lying flat. No increase in jugular venous pressure in her neck. CHEST: Reveals a few rhonchi and a few bibasilar crackles, left-sided Port-A-Cath was noted. CARDIOVASCULAR: Sinus rhythm without murmur, gallop or rub. Heart rate is 100. ABDOMEN: Distended, fluid wave was noted, appeared mildly tender. No rebound. EXTREMITIES: Trace edema, no cyanosis or clubbing. Peripheral pulses 0-1+. Her extremities were cool, but they were not mottled. She has peripheral pulses 0-1+. NEUROLOGIC: She was moving all fours, but none to commands. LABORATORY DATA: On 07/19/2018 at 06:10, hemoglobin was 9 with a white count of 20,000 this morning. On 07/20/2018 at 02:15 this afternoon, hemoglobin was 8.3, white count is 43,000, platelets are down to 35,000 and 16% bands, absolute lymphocytes 6.6, which is high also. Chemistry: Sodium is 132, potassium was 6.9. May have been a hemolyzed specimen. BUN was 49 with a creatinine of 3.1, glucose was 3 that is being rechecked and bicarbonate was 4, anion gap was 27. Serology: Hepatitis screen panel was pending. Venous ABGs showed a pO2 of 78, pH 6.85, pCO2 is 23, bicarbonate was 4 with a sat of 83% that was on 4 liters. Coags: INR was 2.4 with a protime of 24. Urine shows trace protein. Chest x-ray was clear without infiltrate. CT of the abdomen showed moderate ascites, portal hypertension and splenomegaly. No definite notice of metastases, although previously, she is noted to have liver and bony metastases. IMPRESSION: 1. Sepsis syndrome, etiology unclear. Does not appear to be her lungs, appears to be her abdomen. She could have spontaneous bacterial peritonitis, could have ischemic bowel, could be a gastrointestinal tract focus. 2. Metastatic breast carcinoma with progressive disease with liver metastasis and bony metastasis reported in the past. 3. Acute respiratory failure. 4. Metabolic acidosis, [place] [address] CONSULTATION Name: MEREDITH HAMILTON Fortunato Room: [address] IN [facility]#: [id number] Admission: 07/19/18 Attend Phys: Deann Ramos Discharge: Date of : 61 Report #: [id number] 5. Hypoglycemia, probably related to sepsis. 6. Multiorgan failure with a creatinine up to 3 and oliguric renal failure. 7. Liver failure. PLAN: Extremely poor prognosis, family wishes full court press at this time. We will give steroids. She is on antibiotics, add Rocephin and we will give pressors as needed. May see if we can get an arterial line in. She has a Port-A-Cath in for some central access. This has been a 36-minute critical care on this patient. <ELECTRONICALLY SIGNED> By: Joaquim Vázquez MD 07/21/18 1018 1520 [id number] Vázquez MD /nt
--- NOTE | 2018-07-21 11:47 | NUR ---
PATIENT WITH LOSS OF PULSE AND RHYTHM AT 0850 THIS AM. IN THE ROOM. DR MALCOLM IN THE ROOM TO PRONOUNCE. ORDERS TO EXTUBATE. FAMILY ALLOWED TO SEE PATIENT. [facility] CALLED WHO RELEASED BODY, SHE IS NOT A CANDIDATE. FAMILY CHOSE [facility] IN [place]. HOME CONTACTED. AWAITING ON THEM TO SURVEY FIELD TECHNICIAN BODY.
[2018-07-21 14:43] LABS: CO2 < 5 mmol/L (21-32)
--- NOTE | 2018-07-22 14:51 | EKG ---
[place] [address] ELECTROCARDIOGRAM REPORT Name: MEREDITH HAMILTON Room: [address] IN M.R.#: [id number] Admission: 07/19/18 Attend Phys: Deann Ramos Discharge: 07/21/18 Date of : 61 Report #: [id number] THIS REPORT FOR: //name// [facility] ED Test Date: 2018-07-19 Test Time: 17:44:57 Pat Name: MEREDITH HAMILTON Department: Room: [facility] Gender: F Vacuum Tester Cans: Corie JENNINGS : 1965 Requested By: Candace Shah Order Number: [id number] MD: Rah Womack Measurements Intervals [place] Rate: 95 P: 31 OR: 128 QRS: -3 QRSD: 105 T: 32 QT: 386 QTc: 486 Interpretive Statements Sinus rhythm Probable left ventricular hypertrophy Compared to ECG 10/30/2017 17:38:25 No significant changes Electronically Signed On 07-22-2018 14:51:35 CDT by Rah Womack [email or web address] <ELECTRONICALLY SIGNED> By: Rah Womack MD, FACC 07/22/18 1451 1744 1744 Rah Womack MD, [facility] /EPI
--- NOTE | 2018-07-23 09:52 | CON ---
[address] [address] CONSULTATION Name: ALEXANDERLGMEREDITH OLIVEROS Room: [address]#: [id number] Admission: 07/19/18 Attend Phys: Deann Ramos Discharge: 07/21/18 Date of : 61 Report #: [id number] THIS REPORT FOR: //name// CC: Lizzy Sullivan DATE OF SERVICE: 07/21/2018 NEPHROLOGY CONSULTATION: CONSULTING PHYSICIAN: Dr. Sullivan and Dr. Rankin. REASON FOR NEPHROLOGY CONSULTATION: Acute kidney injury, hyperkalemia, metabolic acidosis. REASON FOR ADMISSION: Altered mental status and constipation. HISTORY OF PRESENT ILLNESS: This is a 53-year-old female who has past medical history of metastatic breast cancer including mets to the liver causing cirrhosis, hypertension, diabetes and history of acute kidney injury in the past, apparently on chemotherapy for up to 2 weeks ago, came in with no bowel movement for 10 days and abdominal distention and confusion. She was initially admitted to the floor and creatinine was 2.4 on admission and potassium of 5.4. She decompensated on the floor, became more confused. Ammonia was found to be 130 and at that point, she was transferred to the ICU yesterday afternoon. Her blood pressure started plummeting down and then she eventually required 2 pressors overnight. She is also overnight going into worsening lactic acidosis with lactic acid of 20, the patient had to be intubated and patient also developed anuric worsening acute kidney injury with potassium of 8.3 this morning and serum bicarb of less than 5. Also looks like she is going into DIC with decreasing fibrinogen and D-dimer of more than 35. Her liver function test also worsening. The patient mentally is not responding at all. She is on multiple antibiotics and 2 pressors. ALLERGIES: SULFA AND DIPHENHYDRAMINE. REVIEW OF SYSTEMS: Not able to obtain because of her mental status. HOME MEDICATIONS: Include gabapentin, spironolactone, levothyroxine, oxycodone, clonazepam, citalopram, cyclobenzaprine, zolpidem, fluticasone, gabapentin, potassium chloride, albuterol sulfate, atenolol, celecoxib, cyanocobalamin, ipratropium, magnesium oxide, pyridoxine, acyclovir, fluticasone, chlorhexidine, diclofenac, Lomotil, everolimus, exemestane, ondansetron, pravastatin, and cefdinir. PAST MEDICAL AND SURGICAL HISTORY: Includes acute kidney injury[place] [address] CONSULTATION Name: ALEXANDERFRANSISCAMEREDITH Room: [address] IN M..#: [id number] Admission: 07/19/18 Attend Phys: Deann Ramos Discharge: 07/21/18 Date of : 61 Report #: [id number] breast cancer with mets to the liver, history of liver cirrhosis, double mastectomy, hypertension, diabetes, left breast reconstruction, right arm lymphedema. FAMILY HISTORY: Family history of cancer. SOCIAL HISTORY: She lives with the at home. She does not smoke or use recreational drugs or use alcohol. PHYSICAL EXAMINATION: VITAL SIGNS: Blood pressure is 52/20. She is on 2 pressors. Pulse rate is 87, temperature is 36.1, respiratory rate is 30. She is on 50% of FiO2 with pulse ox of 83%. GENERAL: She is currently intubated, not responsive at all. HEAD, EYES, EARS, NOSE AND THROAT: ET tube in place. NECK: No JVD. CHEST: Bilateral diminished breath sounds, but no crackles or wheezing. CARDIOVASCULAR: S1, S2 normal. No murmurs. ABDOMEN: Distended, nontender, soft. Bowel sounds are diminished. Tenderness cannot be elicited. LOWER EXTREMITIES: 1+ lower extremity edema bilaterally. Bilateral lower extremities are cold and there is mottling of the skin. PSYCHIATRIC: Cannot assess. NEUROLOGICAL FUNCTION: The patient is currently not following any commands, not responsive even to painful stimulus. LABORATORY DATA: WBC is 25.6, hemoglobin 6.7, platelet count of 32,000. Lactic acid was 19,000 last night. Potassium is 8.3. Serum bicarb is less than 5, creatinine is 3.7. Her VBG showed a pH of 6.7. All the labs are reviewed. IMAGING: Chest x-ray, abdominal ultrasound, abdominal pelvic CT scan reviewed. ASSESSMENT: 1. Acute kidney injury in setting of multiorgan failure, septic shock. Baseline creatinine was around 1.0 back in November of last year. Creatinine 2.4 on admission this time. 2. Severe hyperkalemia. 3. Metabolic acidosis. 4. Multiorgan failure with septic shock. 5. Liver dysfunction, history of also liver cirrhosis with mets to the liver from breast cancer. 6. Anemia. 7. Acute thrombocytopenia in the setting of chronic thrombocytopenia. 8. DIC. 9. Acute respiratory failure [place] [address] CONSULTATION Name: MEREDITH HAMILTON Room: [address] IN .Praveena.#: [id number] Admission: 07/19/18 Attend Phys: Shaun SaloDeann Hilario Discharge: 07/21/18 Date of : 61 Report #: [id number] PLAN: 1. Unfortunately, the patient is decompensating very fast with a blood pressure of systolic of 50 on 2 pressors. I do not think she is going to survive this event and her demise is almost certain. I discussed this with family and she is not a candidate for dialysis with her blood pressure being so low and history of metastatic breast cancer and I will not change the prognosis. 2. Discussed with family. They are going to call the rest of the family members and probably terminally extubate her. Thank you for the consultation. I spent more than 45 minutes in patient's critical care. This time was spent in reviewing patient's record, placing orders, examining the patient and discussion with patient's family. We will continue to be available if you have any questions. <ELECTRONICALLY SIGNED> By: Katie Rivero MD 07/23/18 0952 0821 [id number] Rivero MD /nt
== END 2018-07-21 08:50 | DRG 871 ==
LOC: M.ERS 17:29 → M.TBA-ER 18:09 → M.ERS 18:09 → M.TBA-ER 21:10 → M.2W 21:10 → M.ICU 21:10 → M.2W 21:22 → M.ICU 07-20 13:01
PROVIDERS: Family Medicine; Internal Medicine Pulmonary Disease; Nurse Practitioner Adult Health; Physician Assistant; ADMIT Internal Medicine
PROC: 02H633Z Insertion of Infusion Device into Right Atrium, Percutaneous Approach (ICD-10-PCS; principal; 2018-07-20)
PROC: 5A1935Z Respiratory Ventilation, Less than 24 Consecutive Hours (ICD-10-PCS; principal; 2018-07-20)
PROC: 0BH17EZ Insertion of Endotracheal Airway into Trachea, Via Natural or Artificial Opening (ICD-10-PCS; principal; 2018-07-20)
DX: A41.9 Sepsis, unspecified organism (principal); R65.21 Severe sepsis with septic shock; K65.2 Spontaneous bacterial peritonitis; G93.41 Metabolic encephalopathy; J96.00 Acute respiratory failure, unspecified whether with hypoxia or hypercapnia; D65 Disseminated intravascular coagulation [defibrination syndrome]; N17.9 Acute kidney failure, unspecified; E87.1 Hypo-osmolality and hyponatremia; R18.8 Other ascites; D68.9 Coagulation defect, unspecified; E87.2 Acidosis; K56.7 Ileus, unspecified; K76.6 Portal hypertension; G93.1 Anoxic brain damage, not elsewhere classified; E87.5 Hyperkalemia; N18.9 Chronic kidney disease, unspecified; K59.00 Constipation, unspecified; E87.8 Other disorders of electrolyte and fluid balance, not elsewhere classified; E11.649 Type 2 diabetes mellitus with hypoglycemia without coma; K72.90 Hepatic failure, unspecified without coma; I12.9 Hypertensive chronic kidney disease with stage 1 through stage 4 chronic kidney disease, or unspecified chronic kidney disease; E11.22 Type 2 diabetes mellitus with diabetic chronic kidney disease; K74.60 Unspecified cirrhosis of liver; Z90.13 Acquired absence of bilateral breasts and nipples; Z85.3 Personal history of malignant neoplasm of breast; Z92.21 Personal history of antineoplastic chemotherapy; Z79.51 Long term (current) use of inhaled steroids; Z79.899 Other long term (current) drug therapy; Z88.2 Allergy status to sulfonamides; Z88.8 Allergy status to other drugs, medicaments and biological substances; Z80.8 Family history of malignant neoplasm of other organs or systems